=== PATIENT | female | born 1990 | race Two or more races ===

== ENCOUNTER 2019-11-10 03:55 | Emergency (ER) | payer SELFPAY ==
[~2019-11-10] VITALS: Ht 165.1 cm; Wt 67.0 kg
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
--- NOTE | 2019-11-10 04:06 | NUR ---
[facility] AT BEDSIDE TO SPEAK TO PT
[2019-11-10] MEDS ORDERED: DIPH,PERTUSS(ACELL),TET VAC/PF 0.5 ML IM-VACC ONE ×2 (04:14→04:30)
[2019-11-10] MEDS ORDERED: HYDROmorphone 1 MG/ML, 1ML INJ ONE (04:14)
[2019-11-10] MEDS ORDERED: ONDANSETRON 2MG/ML, 2ML ONE (04:14)
--- NOTE | 2019-11-10 04:26 | NUR ---
PT MEDICATED PER [facility] FOR PAIN.
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
[2019-11-10] MEDS ORDERED: ONDANSETRON 2MG/ML, 2ML IVPush ONE (04:30)
[2019-11-10] MEDS ORDERED: HYDROmorphone 1 MG/ML, 1ML INJ IV ONE (04:30)
--- NOTE | 2019-11-10 04:39 | NUR ---
[facility] REMAINS AT BEDSIDE TO FURTHER TALK WITH PT
--- NOTE | 2019-11-10 04:47 | NUR ---
PT TO CT
--- NOTE | 2019-11-10 04:49 | NUR ---
PER [facility] CALL IF PT NEEDS SURGERY.
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
--- NOTE | 2019-11-10 05:31 | NUR ---
LONG DISCUSSION WITH PT REGARDING THE SERIOUSNESS OF HER INJURIES UP TO AND INCLUDING . PT STATES THAT SHE IS CONCERNED BECAUSE HER 10 MONTH OLD BABY IS IN THE [facility]OT[facility] ROOM WITH HER COUSIN AND SHE NEEDS TO ARRANGE CARE OF HER SON AND SHE DOES NOT HAVE HER CELL PHONE AND SUCH DOES NOT KNOW ANY OF THE NUMBERS. PT STATES THAT ONCE SHE GETS HER SON TAKEN CARE OF SHE WILL COME BACK. AGAIN AWARE OF THE RISK INVOLVED WITH LEAVING AND NOT GETTING TREATMENT. VERBALIZE UNDERSTANDING, IS CURRENTLY AA AND O TIMES 4.
--- NOTE | 2019-11-10 05:38 | NUR ---
PT STS SHE WILL RETURN AFTER CARE OF HER CHILDREN HAS BEEN ARRANGED.
--- NOTE | 2019-11-10 05:40 | NUR ---
SPOKE WITH [facility] INFORMING THEM THAT PT DOES NEED SURGERY BUT PT JUST LEFT [facility] TO RETURN TO [facility] WHERE HER FAMILY/ CHILD IS. [facility] STS THEY WILL INFORM OFFICERS THAT PT IS RETURNING.
== END 2019-11-10 05:44 | disposition left against medical advice (07) ==
LOC: ED 05:10
DX: S02.601B Fracture of unspecified part of body of right mandible, initial encounter for open fracture (principal); S02.652B Fracture of angle of left mandible, initial encounter for open fracture; S09.90XA Unspecified injury of head, initial encounter; X58.XXXA Exposure to other specified factors, initial encounter; Y93.89 Activity, other specified; Y92.89 Other specified places as the place of occurrence of the external cause; Y99.8 Other external cause status
CPT/HCPCS: 36415; 70450; 70486; 80307; 90471; 90715; 96374; 96375; 99285; J1170; J2405

== ENCOUNTER 2019-11-10 07:08 | Inpatient (IN) | payer OTHER ==
[~2019-11-10] VITALS: Ht 165.1 cm; Wt 73.0 kg
[2019-11-10] MEDS ORDERED: CEFAZOLIN PMX 1GM/50ML 50 ML IV ONE (07:30)
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
[2019-11-10] MEDS ORDERED: CEFAZOLIN PMX 1GM/50ML 50 ML ONE (07:53)
[2019-11-10] MEDS ORDERED: MORPHINE SULFATE 4 MG/ML, 1ML ONE (07:54)
[2019-11-10] MEDS ORDERED: HYDROmorphone 1 MG/ML, 1ML INJ ONE (07:57)
[2019-11-10] MEDS ORDERED: HYDROmorphone 2 MG/ML, 1ML IVPush PRN ×2 (08:00→10:00)
--- NOTE | 2019-11-10 08:05 | NUR ---
pt educated in regard to the need for surgery.
--- NOTE | 2019-11-10 08:42 | NUR ---
dr olivo spoke with dr lima
--- NOTE | 2019-11-10 09:25 | NUR ---
surgeon is at the bedside for assessment
--- NOTE | 2019-11-10 09:41 | NUR ---
verbal sbar exchanghed susan erwin (naya) on the floor for admission. we will begin to prepare for transport at this time.
[2019-11-10] MEDS ORDERED: POLYETHYLENE GLYCOL 17 GM PACKET PO PRN (10:00)
[2019-11-10] MEDS ORDERED: ONDANSETRON 2MG/ML, 2ML IVPush PRN (10:00)
[2019-11-10] MEDS ORDERED: ONDANSETRON ODT 4 MG PO PRN (10:00)
[2019-11-10] MEDS ORDERED: LACTATED RINGERS 1,000 ML IV SCH (10:00)
[2019-11-10] MEDS ORDERED: DOCUSATE 100 MG CAPSULE PO PRN (10:00)
[2019-11-10] MEDS ORDERED: ACETAMINOPHEN 325 MG TABLET PO PRN (10:00)
[2019-11-10 10:03] LABS: BASOPHILS # (AUTO) 0.03 x10^3/uL (0-0.1); BASOPHILS % (AUTO) 0 % (0-1); EOSINOPHILS # (AUTO) 0.03 x10^3/uL (0-0.4); EOSINOPHILS % (AUTO) 0 % (1-7); LYMPHOCYTES # (AUTO) 3.26 x10^3/uL (1-3.4); LYMPHOCYTES % (AUTO) 35 % (22-44); MD NO; MEAN CORPUSCULAR HEMOGLOBIN 29.4 pg (27.0-34.8); MEAN CORPUSCULAR HGB CONC 33.2 g/dL (32.4-35.8); MEAN CORPUSCULAR VOLUME 88.7 fL (80-100); MEAN PLATELET VOLUME 8.4 fL (7.4-10.4); MONOCYTES # (AUTO) 0.89 x10^3/uL (0.2-0.8); MONOCYTES % (AUTO) 10 % (2-9); NEUTROPHILS # (AUTO) 5.12 x10^3/uL (1.8-6.8); NEUTROPHILS % (AUTO) 55 % (42-75); PLATELET COUNT 338 x10^3/uL (130-400); RED BLOOD COUNT 4.33 x10^6/uL (3.82-5.3); RED CELL DISTRIBUTION WIDTH 14.3 % (9.6-15.2)
[2019-11-10 10:08] LABS: ALBUMIN 4.2 g/dL (3.4-5.0); ANION GAP 9 mmol/L (5-15); CALCIUM 8.9 mg/dL (8.5-10.1); CHLORIDE 111 mmol/L (98-107)
[2019-11-10 10:12] LABS: ALANINE AMINOTRANSFERASE 31 U/L (12-78); ALKALINE PHOSPHATASE 62 U/L (45-117); BILIRUBIN,TOTAL 0.2 mg/dL (0.2-1.0); TOTAL PROTEIN 8.1 g/dL (6.4-8.2)
[2019-11-10 10:37] VITALS: BP 118/74
[2019-11-10] MEDS ORDERED: AMPICILLIN/SULBACTAM 3 GM in SODIUM CHLORIDE 0.9% 100 ML IV SCH (11:00)
== END 2019-11-10 13:00 | disposition left against medical advice (07) | DRG 159 ==
LOC: ED 09:12 → EDIP 09:21 → 4NE 10:13
PROVIDERS: ADMIT Family Medicine; ATTEND Family Medicine
DX: S02.652A Fracture of angle of left mandible, initial encounter for closed fracture (principal); Z53.29 Procedure and treatment not carried out because of patient's decision for other reasons; S02.66XA Fracture of symphysis of mandible, initial encounter for closed fracture; F10.129 Alcohol abuse with intoxication, unspecified; Y04.8XXA Assault by other bodily force, initial encounter; Y93.89 Activity, other specified; Z88.5 Allergy status to narcotic agent; Y92.89 Other specified places as the place of occurrence of the external cause; Y99.8 Other external cause status; S00.81XA Abrasion of other part of head, initial encounter
CPT/HCPCS: 36415; 80053; 85025; 96374; 96375; 96376; 99285; G0378; J0295; J0690; J1170; J7120